=== PATIENT | male | born 1965 | race Hispanic/Latino ===

== ENCOUNTER 2022-10-21 21:22 | Emergency (ER) | payer OTHER ==
[~2022-10-21] VITALS: Ht 172.7 cm; Wt 107.5 kg
[2022-10-21 22:26] LABS: BASOPHILS % (AUTO) 0.3 % (0.0-5.0); EOSINOPHILS % (AUTO) 1.3 % (0.0-8.0); HEMATOCRIT 40.3 % (42-54); LYMPHOCYTES % (AUTO) 30.5 % (21.0-51.0); MEAN CORPUSCULAR HEMOGLOBIN 27.4 pg (27.0-33.0); MEAN CORPUSCULAR VOLUME 85.7 fL (79-99); MONOCYTES % (AUTO) 6.6 % (3.0-13.0); PLATELET COUNT (AUTO) 200 K/uL (130-400); RED CELL DISTRIBUTION WIDTH 13.4 % (11.0-15.5)
[2022-10-21] MEDS ORDERED: HYDROXYZINE 25 MG TABLET PO ONE (22:30)
[2022-10-21 22:34] LABS: POTASSIUM 4.2 mmol/L (3.5-5.1)
[2022-10-21 22:43] LABS: ALBUMIN 4.2 g/dL (3.5-5.0); TOTAL PROTEIN, SERUM 7.3 g/dL (6.0-8.3)
[2022-10-21] MEDS ORDERED: HYDR50CA PO (22:47)
[2022-10-21 22:50] VITALS: BP 150/61
== END 2022-10-21 22:56 | disposition home or self-care (01) ==
LOC: EDH 21:22
DX: F41.9 Anxiety disorder, unspecified (principal)
CPT/HCPCS: 36415; 80053; 84484; 85025; 93005